=== PATIENT | female | born 1940 | race Caucasian/White ===

== ENCOUNTER 2017-06-07 10:49 | Day surgery (SDC) | payer MEDICARE, MEDICAID ==
[~2017-06-07] VITALS: Ht 160 cm; Wt 64.9 kg
[~2017-06-07 10:49] MED LIST: ALBU2.5V7 NEB; CALC667T5 PO; INSU100V9 SQ; VIT1TABL48 PO
[2017-06-07] MEDS ORDERED: normal saline 1000ml 1,000 ML IV SCH (11:05)
[2017-06-07] MEDS ORDERED: LIDOcaine 1%/PF (10mg/ml) 5ml vial SQ ONE (11:20)
[2017-06-07] MEDS ORDERED: midazolam 2 mg/2 ml injection IV PRN (11:20)
[2017-06-07] MEDS ORDERED: fentaNYL/PF 50MCG/1 ML 2ML syringe IV PRN (11:20)
[2017-06-19] MEDS ORDERED: VIT1TABL50 PO (15:38)
[2017-06-19] MEDS ORDERED: FOLI0.8T7 PO (15:39)
[2017-06-19] MEDS ORDERED: SENN-61 PO (15:39)
== END 2017-06-07 11:35 | disposition home or self-care (01) ==
LOC: SSTAY O 10:49
PROVIDERS: ATTEND Radiology Diagnostic Radiology
DX: Z49.02 Encounter for fitting and adjustment of peritoneal dialysis catheter (principal); Z53.8 Procedure and treatment not carried out for other reasons; N18.6 End stage renal disease
CPT/HCPCS: 82948; J7030

== ENCOUNTER 2017-06-13 01:17 | Inpatient (IN) | payer MEDICARE, MEDICAID ==
[~2017-06-13] VITALS: Ht 161.3 cm; Wt 60.8 kg
[2017-06-13 04:15] VITALS: BP 135/75
[2017-06-13] MEDS ORDERED: ondansetron/PF 4mg/2ml inj IV PRN (05:15)
[2017-06-13] MEDS ORDERED: piperacillin/tazo 3.375gm/50ml 50 ML IV ONE (05:40)
[2017-06-13 06:00] VITALS: BP 129/85
[2017-06-13 06:16] LABS: BASOPHILS % (AUTO) 0.1 % (0-1); EOSINOPHILS # (AUTO) 0.3 X10'3 (0-0.9); EOSINOPHILS % (AUTO) 1.8 % (0-6); HEMATOCRIT 32.9 % (35.0-45.0); HEMOGLOBIN 10.4 g/dl (12.0-16.0); LYMPHOCYTES % (AUTO) 5.9 % (21-51); MEAN CORPUSCULAR HEMOGLOBIN 28.9 PG (27.0-31.0); MEAN CORPUSCULAR HGB CONC 31.6 % (33.0-36.5); MEAN CORPUSCULAR VOLUME 91.5 FL (78-98); MEAN PLATELET VOLUME 7.3 FL (7.4-10.4); MONOCYTES # (AUTO) 1.3 X10'3 (0-0.9); MONOCYTES % (AUTO) 7.9 % (2-12); NEUTROPHILS % (AUTO) 84.3 % (42-75); PLATELET COUNT 331 X10'3 (140-440); RED CELL DISTRIBUTION WIDTH 15.4 % (11.5-14.5); WHITE BLOOD COUNT 16.6 X10'3 (4.5-11.0)
[2017-06-13 06:26] LABS: PARTIAL THROMBOPLASTIN TIME 30 SECONDS (22-32); PROTHROMBIN TIME 10.3 SECONDS (9.0-12.0)
[2017-06-13 06:53] LABS: ALANINE AMINOTRANSFERASE 15 U/L (12-78); ALBUMIN 3.2 G/DL (3.4-5.0); ALBUMIN/GLOBULIN RATIO 0.8 (1.1-1.5); ALKALINE PHOSPHATASE 133 IU/L (46-116); ANION GAP 10 (8-16); ASPARTATE AMINO TRANSFERASE 17 U/L (10-37); BILIRUBIN,TOTAL 0.6 MG/DL (0.1-1.0); BLOOD UREA NITROGEN 20 MG/DL (7-18); BUN/CREATININE RATIO 4.2 (6.6-38.0); CALCIUM 8.9 MG/DL (8.5-10.1); CHLORIDE 99 MMOL/L (99-107); CREATININE 4.78 MG/DL (0.40-0.90); GLUCOSE 148 MG/DL (70-104); MAGNESIUM 2.7 MG/DL (1.5-2.4); POTASSIUM 4.6 MMOL/L (3.5-5.1); SODIUM 139 MMOL/L (135-145); TOTAL CARBON DIOXIDE 29.6 MMOL/L (24-32); TOTAL PROTEIN 7.1 G/DL (6.4-8.2); eGFR 9 ML/MIN
[2017-06-13 07:10] LABS: HEMOGLOBIN A1C 5.1 % (4.5-6.2)
[2017-06-13] MEDS: piperacillin-tazo 2.25gm/50ml 50 ML IV SCH ×2 (09:57→16:00)
[2017-06-13 11:00] VITALS: BP 125/61
[2017-06-13] MEDS ORDERED: heparin 1,000unit/ml 10ml vial 10 ML IV ONE (12:16)
[2017-06-13] MEDS ORDERED: normal saline 1000ml 250 ML IV PRN (12:16)
[2017-06-13] MEDS ORDERED: heparin 1,000 units/ml 10ml inj HE ONE ×2 (12:20)
[2017-06-13] MEDS ORDERED: ONDA4TAB11 PO (14:43)
[2017-06-13] MEDS ORDERED: PER10325T PO (14:43)
[2017-06-13] MEDS ORDERED: LUTE40CA PO (14:44)
[2017-06-13 15:00] VITALS: BP 105/48
[2017-06-13] MEDS ORDERED: lactobacillus rhamnosus 10,000 MMU CELLS/CAPSULE PO SCH (17:30)
[2017-06-19] MEDS ORDERED: VIT1TABL50 PO (15:38)
[2017-06-19] MEDS ORDERED: FOLI0.8T7 PO (15:39)
[2017-06-19] MEDS ORDERED: SENN-61 PO (15:39)
== END 2017-06-13 17:30 | disposition home or self-care (01) | DRG 388 ==
LOC: PCU 3S 04:06
PROVIDERS: ADMIT Internal Medicine Critical Care Medicine; ATTEND Internal Medicine Critical Care Medicine
PROC: 5A1D70Z Performance of Urinary Filtration, Intermittent, Less than 6 Hours Per Day (ICD-10-PCS; principal; 2017-06-13)
DX: K56.41 Fecal impaction (principal); N18.6 End stage renal disease; E11.22 Type 2 diabetes mellitus with diabetic chronic kidney disease; K21.9 Gastro-esophageal reflux disease without esophagitis; Z90.49 Acquired absence of other specified parts of digestive tract; Z90.710 Acquired absence of both cervix and uterus; Z99.2 Dependence on renal dialysis; Z79.899 Other long term (current) drug therapy; Z79.4 Long term (current) use of insulin; Z98.42 Cataract extraction status, left eye; Z98.41 Cataract extraction status, right eye; Z87.891 Personal history of nicotine dependence
CPT/HCPCS: 36415; 80053; 83036; 83735; 85025; 85610; 85730; 87070; A6257; J1644; J2270; J2543; J7030

== ENCOUNTER 2017-06-20 06:02 | Day surgery (SDC) | payer MEDICARE, MEDICAID ==
[~2017-06-20] VITALS: Ht 161.3 cm; Wt 63.0 kg
[2017-06-20 06:00] VITALS: BP 141/77
[~2017-06-20 06:02] MED LIST changes: -ALBU2.5V7 NEB; +FOLI0.8T7 PO; +LUTE40CA PO; +SENN-61 PO; -VIT1TABL48 PO; +VIT1TABL50 PO; +famotidine 20mg tablet PO ONE; +ringers solution, lacted 1,000 ML IV SCH
[2017-06-20] MEDS ORDERED: LIDOcaine 1% (10mg/ml) 2ml vial ONE (06:32)
[2017-06-20] MEDS ORDERED: ceFAZolin 2gm in dextrose, iso 100 ML IV ONE (06:40)
[2017-06-20] MEDS ORDERED: LIDOcaine 1% 30ml vial 30 ML ONE (07:15)
[2017-06-20] MEDS ORDERED: heparin 10,000 units/1 ML INJ ONE (07:15)
[2017-06-20] MEDS ORDERED: ceFAZolin 1000mg inj ONE (07:25)
[2017-06-20 07:54] LABS: BASOPHILS # (AUTO) 0.1 X10'3 (0-0.2); BASOPHILS % (AUTO) 0.7 % (0-1); EOSINOPHILS # (AUTO) 0.5 X10'3 (0-0.9); EOSINOPHILS % (AUTO) 4.9 % (0-6); LYMPHOCYTES # (AUTO) 1.6 X10'3 (1.1-4.8); LYMPHOCYTES % (AUTO) 17.3 % (21-51); MEAN CORPUSCULAR HEMOGLOBIN 28.6 PG (27.0-31.0); MEAN CORPUSCULAR HGB CONC 31.4 % (33.0-36.5); MEAN CORPUSCULAR VOLUME 90.9 FL (78-98); MEAN PLATELET VOLUME 7.2 FL (7.4-10.4); MONOCYTES % (AUTO) 10.3 % (2-12); NEUTROPHILS # (AUTO) 6.2 X10'3 (1.8-7.7); NEUTROPHILS % (AUTO) 66.8 % (42-75); PRE OP HEMATOCRIT 33.8 % (35.0-45.0); PRE OP PLATELET COUNT 301 X10'3 (140-440); RED BLOOD COUNT 3.72 X10'6 (4.20-5.60); RED CELL DISTRIBUTION WIDTH 15.2 % (11.5-14.5)
[2017-06-20 07:56] LABS: CLARITY,URINE Clear (Clear); COLOR,URINE Yellow (Yellow); GLUCOSE, URINE Negative (Neg); KETONES,URINE Negative (Neg); LEUKOCYTE ESTERASE ,URINE Negative (Neg); NITRITES, URINE Negative (Neg); OCCULT BLOOD,URINE Negative (Neg); PH,URINE >=9.0 (4.8-8.0); PROTEIN,URINE 300 mg/dl (Neg); UROBILINOGEN,URINE 0.2 E.U/dL (0.2-1.0)
[2017-06-20 07:57] LABS: PRE OP HEMOGLOBIN 10.6 g/dL (12.0-16.0)
[2017-06-20 07:59] LABS: UA COLLECTION TYPE VOIDED
[2017-06-20 08:09] LABS: BACTERIA,URINE FEW /HPF (Neg); MUCUS STRANDS FEW /LPF (Neg); RBC,URINE 0-2 /HPF (0-2); SQUAMOUS EPITHELIAL CELL,UR FEW /LPF (FEW); WBC,URINE 0-4 /HPF (0-4)
[2017-06-20 08:16] LABS: ALBUMIN 3.1 G/DL (3.4-5.0); ALBUMIN/GLOBULIN RATIO 0.8 (1.1-1.5); ALKALINE PHOSPHATASE 107 IU/L (46-116); BLOOD UREA NITROGEN 37 MG/DL (7-18); BUN/CREATININE RATIO 7.3 (6.6-38.0); CALCIUM 8.7 MG/DL (8.5-10.1); CHLORIDE 101 MMOL/L (99-107); CREATININE 5.08 MG/DL (0.40-0.90); PRE OP ALT 16 U/L (30-65); PRE OP ANION GAP 8 (8-16); PRE OP AST 14 U/L (10-37); PRE OP BILIRUB, TOTAL 0.4 MG/DL (0.0-1.0); PRE OP GLUCOSE 113 MG/DL (70-104); PRE OP POTASSIUM 4.4 MMOL/L (3.4-5.1); PRE OP SODIUM 137 MMOL/L (135-145); TOTAL CARBON DIOXIDE 27.9 MMOL/L (24-32); TOTAL PROTEIN 6.9 G/DL (6.4-8.2); eGFR 8 ML/MIN
[2017-06-20] MEDS ORDERED: sevoflurane 250ml liquid IH ONE (10:00)
[2017-06-20] MEDS ORDERED: albuterol 2.5 MG/3 ML nebule ONE (10:00)
[2017-06-20] MEDS ORDERED: fentaNYL/PF 50MCG/1 ML 2ML syringe ONE ×2 (10:02→10:08)
[2017-06-20] MEDS ORDERED: ketamine 10mg/ml 20ml inj ONE (10:02)
[2017-06-20] MEDS ORDERED: midazolam 2 mg/2 ml injection ONE ×2 (10:02→10:08)
[2017-06-20] MEDS ORDERED: propofol inj 20 ML IV ONE (11:02)
[2017-06-20] MEDS ORDERED: glycopyrrolate 0.2mg/ml inj ONE (11:02)
[2017-06-20] MEDS ORDERED: LIDOcaine 2% (20mg/ml) 5ml vial ONE (11:02)
[2017-06-20] MEDS ORDERED: ondansetron/PF 4mg/2ml inj ONE (11:02)
[2017-06-20] MEDS ORDERED: rocuronium 10mg/ml inj IV ONE (11:02)
[2017-06-20] MEDS ORDERED: esmolol inj. 10 ML IV ONE (11:02)
[2017-06-20] MEDS ORDERED: neostigmine methylsulfate 1 MG/ML 10ml vial ONE (11:02)
[2017-06-20 11:30] VITALS: BP 153/87
[2017-06-20] MEDS ORDERED: normal saline 1000ml 1,000 ML IV ONE (11:35)
[2017-06-20] MEDS ORDERED: ondansetron/PF 4mg/2ml inj IV PRN (11:35)
[2017-06-20 11:40] VITALS: BP 140/79
[2017-06-20 11:50] VITALS: BP 132/75
[2017-06-20 12:00] VITALS: BP 133/72
[2017-06-20 12:10] VITALS: BP 135/78
[2017-06-20] MEDS ORDERED: traMADol 50MG tablet PO ONE (12:10)
== END 2017-06-20 12:10 | disposition home or self-care (01) ==
LOC: PAS 06:02
PROVIDERS: ATTEND Surgery
DX: E11.22 Type 2 diabetes mellitus with diabetic chronic kidney disease (principal); N18.9 Chronic kidney disease, unspecified; E78.5 Hyperlipidemia, unspecified; Z99.2 Dependence on renal dialysis; Z88.6 Allergy status to analgesic agent; Z88.8 Allergy status to other drugs, medicaments and biological substances; Z79.4 Long term (current) use of insulin; Z87.891 Personal history of nicotine dependence; Z98.890 Other specified postprocedural states
CPT/HCPCS: 36415; 36821; 49422; 80053; 81001; 82948; 85025; 93005; J0690; J1644; J2001; J2250; J2405; J2704; J2710; J3010; J3490; J7030; J7120; A7000

== ENCOUNTER 2018-07-10 17:38 | Emergency (ER) | payer MEDICARE, MEDICAID ==
[~2018-07-10] VITALS: Ht 160 cm; Wt 62.0 kg
[~2018-07-10 17:38] MED LIST changes: -famotidine 20mg tablet PO ONE; -ringers solution, lacted 1,000 ML IV SCH
[2018-07-10 18:15] LABS: BASOPHILS % (AUTO) 0.2 % (0-1); EOSINOPHILS # (AUTO) 0.1 X10'3 (0-0.9); EOSINOPHILS % (AUTO) 1.3 % (0-6); HEMATOCRIT 35.9 % (35.0-45.0); HEMOGLOBIN 11.8 g/dl (12.0-16.0); LYMPHOCYTES # (AUTO) 0.6 X10'3 (1.1-4.8); LYMPHOCYTES % (AUTO) 14.3 % (21-51); MEAN CORPUSCULAR HEMOGLOBIN 31.2 PG (27.0-31.0); MEAN CORPUSCULAR HGB CONC 32.9 g/dL (33.0-36.5); MEAN CORPUSCULAR VOLUME 94.7 FL (78-98); MEAN PLATELET VOLUME 7.7 FL (7.4-10.4); MONOCYTES # (AUTO) 0.6 X10'3 (0-0.9); MONOCYTES % (AUTO) 12.9 % (2-12); NEUTROPHILS # (AUTO) 3.1 X10'3 (1.8-7.7); NEUTROPHILS % (AUTO) 71.3 % (42-75); PLATELET COUNT 234 X10'3 (140-440); RED BLOOD COUNT 3.79 X10'6 (4.20-5.60); RED CELL DISTRIBUTION WIDTH 15.7 % (11.5-14.5); WHITE BLOOD COUNT 4.3 X10'3 (4.5-11.0)
[2018-07-10 18:32] LABS: INR 1.2 INR; PARTIAL THROMBOPLASTIN TIME 36 SECONDS (22-32)
[2018-07-10 18:49] LABS: ALANINE AMINOTRANSFERASE 34 U/L (12-78); ALBUMIN 2.6 G/DL (3.4-5.0); ALBUMIN/GLOBULIN RATIO 0.6 (1.1-1.5); ALKALINE PHOSPHATASE 127 IU/L (46-116); ANION GAP 7 (8-16); ASPARTATE AMINO TRANSFERASE 26 U/L (10-37); BILIRUBIN,TOTAL 0.6 MG/DL (0.1-1.0); BLOOD UREA NITROGEN 20 MG/DL (7-18); BUN/CREATININE RATIO 4.8 (6.6-38.0); CALCIUM 8.5 MG/DL (8.5-10.1); CHLORIDE 97 MMOL/L (99-107); GLUCOSE 161 MG/DL (70-104); POTASSIUM 3.9 MMOL/L (3.5-5.1); SODIUM 135 MMOL/L (135-145); TOTAL CARBON DIOXIDE 30.8 MMOL/L (24-32); TOTAL PROTEIN 7.2 G/DL (6.4-8.2); eGFR 10 ML/MIN
--- NOTE | 2018-07-10 18:58 | NUR ---
Call from lab to clarify eleveted BUN (20) and creatine (4.2)
--- NOTE | 2018-07-10 20:11 | NUR ---
ASSISTING RN WITH PT CARE, PT IS 78 YO FEMALE REFERRED TO ER BY DIALYSIS TO EVAL COUGH, PT HAS HAD PRODUCTIVE COUGH FOR 1 1/2 WEEKS, CHEST PRESSURE TO MID LOWER CHEST, +DYSPNEA, FINISHED ANTIBIOTIC YESTERDAY, HAD DIALYSIS TODAY, FAMILY AT BEDSIDE
[2018-07-10 21:40] VITALS: BP 120/46
--- NOTE | 2018-07-10 22:37 | NUR ---
June, Set Up Mechanic LUDWIG, at bedside. She was consulted and decision made to DC and stop coreg. Pt will be back for dialysis on sunday and further evaluated. Pt currently with stable vs. HR remains 55. Pt denies any pain. Daughter at beside.
== END 2018-07-10 23:00 | disposition home or self-care (01) ==
LOC: ER 17:39
DX: J90 Pleural effusion, not elsewhere classified (principal); R53.1 Weakness; I95.89 Other hypotension; I12.0 Hypertensive chronic kidney disease with stage 5 chronic kidney disease or end stage renal disease; N18.6 End stage renal disease; F17.200 Nicotine dependence, unspecified, uncomplicated; Z99.2 Dependence on renal dialysis; Z98.890 Other specified postprocedural states; Z88.5 Allergy status to narcotic agent; Z79.4 Long term (current) use of insulin; Z79.899 Other long term (current) drug therapy
CPT/HCPCS: 36415; 71045; 80053; 83605; 84484; 85025; 85610; 85730; 87040; 87502; 87503; 93005; 99284

== ENCOUNTER 2018-07-17 15:35 | Inpatient (IN) | payer MEDICARE, MEDICAID ==
[~2018-07-17] VITALS: Ht 160 cm; Wt 60.9 kg
[2018-07-17] MEDS ORDERED: acetaminophen 325mg tablet PO PRN ×2 (19:55)
--- NOTE | 2018-07-17 20:00 | NUR ---
arrived to floor. furnace charger notified MD to see patient. will get [address] Concaving Machine Operator noted pauses throughout trip up to 4 seconds. pt continues to be dizzy as only symptom. VSS. sitting in bed.
[2018-07-17] MEDS ORDERED: insulin Lispro (HumaLOG) vial - multi-dose SQ SCH (20:05)
[2018-07-17] MEDS ORDERED: dextrose ORAL solution 15 GM/59 ML bottle PO PRN ×2 (20:05)
[2018-07-17] MEDS ORDERED: MESSAGE TO PHARMACY PO ONE (20:05)
[2018-07-17] MEDS ORDERED: glucagon, human recombinant 1mg kit SUBCUT PRN (20:05)
[2018-07-17] MEDS ORDERED: dextrose 50%-water 50ml dispensing syringe IV PRN ×2 (20:05)
[2018-07-17 20:30] VITALS: BP 124/72
--- NOTE | 2018-07-17 20:30 | NUR ---
discussed code status with patient. she stated with her daughter that she doesn't want to be on life sustaining equipment, but ok to bring back temporary. will talk with Marina for correct orders.
[2018-07-17] MEDS: insulin glargine (Lantus) pen - multi-dose SQ SCH (21:00)
[2018-07-17 21:08] LABS: BASOPHILS % (AUTO) 0.4 % (0-1); EOSINOPHILS # (AUTO) 0.1 X10'3 (0-0.9); EOSINOPHILS % (AUTO) 1.6 % (0-6); HEMATOCRIT 36.5 % (35.0-45.0); HEMOGLOBIN 12.1 g/dl (12.0-16.0); LYMPHOCYTES % (AUTO) 12.2 % (21-51); MEAN CORPUSCULAR HEMOGLOBIN 31.4 PG (27.0-31.0); MEAN CORPUSCULAR HGB CONC 33.2 g/dL (33.0-36.5); MEAN CORPUSCULAR VOLUME 94.4 FL (78-98); MEAN PLATELET VOLUME 7.6 FL (7.4-10.4); MONOCYTES # (AUTO) 0.8 X10'3 (0-0.9); MONOCYTES % (AUTO) 9.1 % (2-12); NEUTROPHILS # (AUTO) 6.5 X10'3 (1.8-7.7); NEUTROPHILS % (AUTO) 76.7 % (42-75); PLATELET COUNT 299 X10'3 (140-440); RED BLOOD COUNT 3.87 X10'6 (4.20-5.60); RED CELL DISTRIBUTION WIDTH 15.9 % (11.5-14.5); WHITE BLOOD COUNT 8.5 X10'3 (4.5-11.0)
[2018-07-17 21:17] LABS: ALANINE AMINOTRANSFERASE 26 U/L (12-78); ALBUMIN 2.9 G/DL (3.4-5.0); ALBUMIN/GLOBULIN RATIO 0.7 (1.1-1.5); ALKALINE PHOSPHATASE 101 IU/L (46-116); ANION GAP 6 (8-16); ASPARTATE AMINO TRANSFERASE 23 U/L (10-37); BILIRUBIN,TOTAL 0.8 MG/DL (0.1-1.0); BLOOD UREA NITROGEN 46 MG/DL (7-18); BUN/CREATININE RATIO 6.7 (6.6-38.0); CALCIUM 9.4 MG/DL (8.5-10.1); CHLORIDE 94 MMOL/L (99-107); CREATININE 6.86 MG/DL (0.40-0.90); GLUCOSE 74 MG/DL (70-104); MAGNESIUM 2.4 MG/DL (1.5-2.4); SODIUM 131 MMOL/L (135-145); TOTAL CARBON DIOXIDE 31.2 MMOL/L (24-32); TOTAL PROTEIN 7.3 G/DL (6.4-8.2); eGFR 6 ML/MIN
[2018-07-17 21:21] LABS: INR 1.1 INR; PARTIAL THROMBOPLASTIN TIME 31 SECONDS (22-32); PHOSPHORUS 1.2 MG/DL (2.3-4.5); POTASSIUM 6.4 MMOL/L (3.5-5.1); PROTHROMBIN TIME 11.3 SECONDS (9.0-12.0)
[2018-07-17] MEDS ORDERED: sodium bicarbonate (8.4%) inj. 150 MEQ in dextrose 5%-water 1,000 ML IV SCH (21:45)
[2018-07-17] MEDS: ondansetron/PF 4mg/2ml inj IV PRN (22:26)
[2018-07-17 22:30] VITALS: BP 132/68
[2018-07-17] MEDS ORDERED: CARV3.1244 (23:10)
[2018-07-17] MEDS ORDERED: APIX2.5T (23:10)
[2018-07-17] MEDS ORDERED: OMEP40CA37 (23:10)
[2018-07-17] MEDS ORDERED: GUAI-934 (23:10)
[2018-07-17] MEDS ORDERED: AMIO200T40 (23:10)
--- NOTE | 2018-07-17 23:34 | NUR ---
charge Kyara reported 5 second pause to Marina. no new orders. dialysis will be in am. no kayexolate tonight - bicarb hanging.
[2018-07-18] VITALS (15 sets, daily range): BP systolic 95–138; BP diastolic 32–74
--- NOTE | 2018-07-18 04:50 | NUR ---
notified Marina of yaw lasting over 5 minutes with heartrate sustaining in 30's. pt's longest pause at this point is 7.25 seconds. pt still c/o dizziness with episodes when awake, but able to sleep through yaw events at this time. charge Kyara hanging dopamine drip as ordered by Marina. lab drawing blood
[2018-07-18] MEDS: DOPamine 400mg/D5W 250ml 250 ML IV SCH (04:53)
[2018-07-18 05:47] LABS: BASOPHILS % (AUTO) 0.5 % (0-1); EOSINOPHILS # (AUTO) 0.1 X10'3 (0-0.9); EOSINOPHILS % (AUTO) 1.8 % (0-6); HEMATOCRIT 34.6 % (35.0-45.0); HEMOGLOBIN 11.5 g/dl (12.0-16.0); LYMPHOCYTES # (AUTO) 1.1 X10'3 (1.1-4.8); LYMPHOCYTES % (AUTO) 13.6 % (21-51); MEAN CORPUSCULAR HEMOGLOBIN 31.1 PG (27.0-31.0); MEAN CORPUSCULAR HGB CONC 33.1 g/dL (33.0-36.5); MEAN CORPUSCULAR VOLUME 93.8 FL (78-98); MEAN PLATELET VOLUME 7.8 FL (7.4-10.4); MONOCYTES # (AUTO) 0.7 X10'3 (0-0.9); MONOCYTES % (AUTO) 8.9 % (2-12); NEUTROPHILS % (AUTO) 75.2 % (42-75); PLATELET COUNT 261 X10'3 (140-440); RED BLOOD COUNT 3.69 X10'6 (4.20-5.60); RED CELL DISTRIBUTION WIDTH 16.3 % (11.5-14.5)
[2018-07-18 06:04] LABS: ALANINE AMINOTRANSFERASE 23 U/L (12-78); ALBUMIN 2.6 G/DL (3.4-5.0); ALBUMIN/GLOBULIN RATIO 0.7 (1.1-1.5); ALKALINE PHOSPHATASE 87 IU/L (46-116); ANION GAP 5 (8-16); ASPARTATE AMINO TRANSFERASE 20 U/L (10-37); BILIRUBIN,TOTAL 0.6 MG/DL (0.1-1.0); BLOOD UREA NITROGEN 49 MG/DL (7-18); CALCIUM 8.9 MG/DL (8.5-10.1); CHLORIDE 93 MMOL/L (99-107); CREATININE 7.01 MG/DL (0.40-0.90); GLUCOSE 121 MG/DL (70-104); MAGNESIUM 2.4 MG/DL (1.5-2.4); PHOSPHORUS 1.4 MG/DL (2.3-4.5); SODIUM 129 MMOL/L (135-145); TOTAL PROTEIN 6.6 G/DL (6.4-8.2); eGFR 6 ML/MIN
[2018-07-18 06:16] LABS: POTASSIUM 6.1 MMOL/L (3.5-5.1)
--- NOTE | 2018-07-18 06:39 | NUR ---
reported to days. noted pt steady HR in 70's with no tachy episodes. no more pauses. noted critical potassium 6.1 called to Gray. no further orders. noted pt has only 1 IV and needs second for bicarb drip
[2018-07-18] MEDS: folic acid/vitamin B complex w/vitamin C 0.8mg tablet PO SCH (07:31)
[2018-07-18] MEDS: sennosides/docusate sodium tablet PO SCH (07:32)
[2018-07-18] MEDS: calcium acetate 667mg (PhosLO) capsule PO SCH ×2 (07:32→13:00)
[2018-07-18] MEDS: ondansetron/PF 4mg/2ml inj IV PRN (07:33)
--- NOTE | 2018-07-18 07:39 | NUR ---
PAGER ID: [phone] MESSAGE: Manuela AMOS [phone] [id number] [place] [employer] notified me that pt. went back into an accelerated junctional rhytmn with a HR of 115 and a blood pressure of 155/53. Pt. currently as a HR in the 60s.
[2018-07-18] MEDS ORDERED: folic acid/vitamin B complex w/vitamin C 0.8mg tablet PO SCH (08:00)
[2018-07-18] MEDS ORDERED: normal saline 1000ml 250 ML IV PRN (08:18)
[2018-07-18] MEDS ORDERED: LIDOcaine 1% (10mg/ml) 2ml vial SQ ONE (08:20)
[2018-07-18] MEDS ORDERED: heparin 1,000 units/ml 10ml inj IV ONE (08:20)
--- NOTE | 2018-07-18 13:18 | NUR ---
PAGER ID: [phone] MESSAGE: Marisa AMOS [phone]. Pt has decreased appetite, not eating much. Do you think Ensure or protein shake/supplement would be appropriate for her? Please advise. Thank you.
--- NOTE | 2018-07-18 14:05 | NUR ---
Marcelo 07/20 DMdone Consult: Pt with A1C of 7.0. Met pt at bedside. Offered written and verbal education, pt declined as she has had DM for over 20 years and has been educated. Pt follows a DM diet at home, takes medication on a regular basis, sees a DM regularly. No documented LBM Will continue to follow. Addendum: 07/18/18 at [address] Amended: Links added. Addendum: 07/18/18 at [address] I have reviewed and agree with note by Real Estate Accountant. Nuria Silva RD
[2018-07-18] MEDS ORDERED: apixaban 2.5mg tablet PO SCH (14:45)
[2018-07-18 16:28] LABS: ALANINE AMINOTRANSFERASE 26 U/L (12-78); ALBUMIN/GLOBULIN RATIO 0.6 (1.1-1.5); ALKALINE PHOSPHATASE 113 IU/L (46-116); ANION GAP 8 (8-16); ASPARTATE AMINO TRANSFERASE 25 U/L (10-37); BILIRUBIN,TOTAL 0.9 MG/DL (0.1-1.0); BLOOD UREA NITROGEN 27 MG/DL (7-18); BUN/CREATININE RATIO 5.7 (6.6-38.0); CALCIUM 9.5 MG/DL (8.5-10.1); CHLORIDE 94 MMOL/L (99-107); GLUCOSE 156 MG/DL (70-104); POTASSIUM 4.9 MMOL/L (3.5-5.1); SODIUM 133 MMOL/L (135-145); TOTAL CARBON DIOXIDE 30.9 MMOL/L (24-32); TOTAL PROTEIN 8.1 G/DL (6.4-8.2); eGFR 9 ML/MIN
--- NOTE | 2018-07-18 17:37 | NUR ---
Notified Dr. Diana of patient's inability to be titrated down on dopamine drip per Dr. Mcgill's miscellaneous nursing order. When rate was decreased from 3mcg/ to 2mcg/kg/hr, pt's heart rate decreased to high 40s/low50s. Increased rate to previous 3mcg/kg/hr. Also notified him that the infusion is running through PIV as PICC RN not available for placement. New PIV placed and site of infusion changed, PICC to be placed in the morning. No orders received.
[2018-07-18] MEDS: insulin glargine (Lantus) pen - multi-dose SQ SCH (21:00)
[2018-07-18] MEDS: zinc sulfate 220mg capsule PO SCH (21:51)
[2018-07-19] VITALS (10 sets, daily range): BP systolic 75–128; BP diastolic 46–70
[2018-07-19] MEDS: DOPamine 400mg/D5W 250ml 250 ML IV SCH ×2 (04:45→16:24)
--- NOTE | 2018-07-19 06:21 | NUR ---
Problems reprioritized. Patient report given, questions answered & plan of care reviewed with Manuela AMOS.
[2018-07-19 06:22] LABS: BASOPHILS % (AUTO) 0.5 % (0-1); EOSINOPHILS # (AUTO) 0.2 X10'3 (0-0.9); EOSINOPHILS % (AUTO) 2.3 % (0-6); HEMATOCRIT 40.3 % (35.0-45.0); HEMOGLOBIN 13.1 g/dl (12.0-16.0); LYMPHOCYTES # (AUTO) 0.9 X10'3 (1.1-4.8); LYMPHOCYTES % (AUTO) 11.5 % (21-51); MEAN CORPUSCULAR HEMOGLOBIN 30.9 PG (27.0-31.0); MEAN CORPUSCULAR HGB CONC 32.5 g/dL (33.0-36.5); MEAN PLATELET VOLUME 7.7 FL (7.4-10.4); MONOCYTES # (AUTO) 0.8 X10'3 (0-0.9); MONOCYTES % (AUTO) 10.1 % (2-12); NEUTROPHILS # (AUTO) 5.8 X10'3 (1.8-7.7); NEUTROPHILS % (AUTO) 75.6 % (42-75); PLATELET COUNT 301 X10'3 (140-440); RED BLOOD COUNT 4.24 X10'6 (4.20-5.60); RED CELL DISTRIBUTION WIDTH 15.6 % (11.5-14.5); WHITE BLOOD COUNT 7.7 X10'3 (4.5-11.0)
--- NOTE | 2018-07-19 06:23 | NUR ---
Patient in room PCU 3016. I have received report from Meg AMOS and had the opportunity to ask questions and assume patient care.
[2018-07-19 06:52] LABS: ALANINE AMINOTRANSFERASE 22 U/L (12-78); ALBUMIN 2.7 G/DL (3.4-5.0); ALBUMIN/GLOBULIN RATIO 0.6 (1.1-1.5); ALKALINE PHOSPHATASE 107 IU/L (46-116); ANION GAP 8 (8-16); ASPARTATE AMINO TRANSFERASE 19 U/L (10-37); BILIRUBIN,TOTAL 0.8 MG/DL (0.1-1.0); BLOOD UREA NITROGEN 38 MG/DL (7-18); BUN/CREATININE RATIO 6.3 (6.6-38.0); CALCIUM 9.1 MG/DL (8.5-10.1); CHLORIDE 95 MMOL/L (99-107); CREATININE 6.05 MG/DL (0.40-0.90); GLUCOSE 121 MG/DL (70-104); MAGNESIUM 2.3 MG/DL (1.5-2.4); PHOSPHORUS 1.7 MG/DL (2.3-4.5); POTASSIUM 5.1 MMOL/L (3.5-5.1); SODIUM 133 MMOL/L (135-145); TOTAL CARBON DIOXIDE 30.4 MMOL/L (24-32); TOTAL PROTEIN 7.4 G/DL (6.4-8.2); eGFR 7 ML/MIN
[2018-07-19] MEDS: zinc sulfate 220mg capsule PO SCH ×3 (08:00→21:39)
[2018-07-19] MEDS: sennosides/docusate sodium tablet PO SCH (08:00)
[2018-07-19] MEDS: folic acid/vitamin B complex w/vitamin C 0.8mg tablet PO SCH (08:00)
--- NOTE | 2018-07-19 08:03 | NUR ---
Contacted Dr. Valencia's office and spoke with Alivia regarding pt receiving 2.5mg Eliquis 07/18 @5007, she paged Dr. Valencia with this information, awaiting call back. Was told that if no call back in 15-20 minutes to contact office again.
--- NOTE | 2018-07-19 08:22 | NUR ---
Received return call from Dr. Valencia, notified him of pt receiving 2.5mg Eliquis yesterday @ 1642 as well as ECHO completed this AM and results are still pending. Dr. Valencia acknowledged. No orders received.
--- NOTE | 2018-07-19 10:40 | NUR ---
Notified by OR that patient will not have pacemaker placed until tomorrow morning (07/20) due to Eliquis administration yesterday and that she may eat until ID tonight.
--- NOTE | 2018-07-19 10:50 | NUR ---
Talked with PICC RN regarding patient needing either PICC or extended PIV due to continuous dopamine infusion. She thinks that a PICC is most appropriate for this medication, however, due to patient having pacemaker placement tomorrow she is unsure if a PICC is the best option. She states that she will contact Dr. Valencia and find out what he would like done.
--- NOTE | 2018-07-19 10:53 | NUR ---
Initial: Pt admit with ESRD on HD, dizziness, and bradycardia. Pt currently NPO for OR pending permanent pacemaker. Prior to NPO status pt was on renal diet with 1L fluid restriction with documented PO intake 25-50%. Will monitor PO intake with diet advancement and need for ONS. LBM 07/18. No edema or wounds. Will continue to follow. Recommendations: 1) Advance to renal CHO controlled diet as medically indicated 2) Monitor need for ONS with diet advancement 3) Wt per rx Addendum: 07/19/18 at [address] Amended: Links added.
--- NOTE | 2018-07-19 10:55 | NUR ---
PAGER ID: [phone] MESSAGE: Marisa AMOS [phone] [place] Pt has dopamine running through PIV, needs to be running through PICC. Per Dr. Valencia, PICC is okay prior to pacemaker placement tomorrow morning. Can we get an order for PICC placement.
--- NOTE | 2018-07-19 11:05 | NUR ---
PAGER ID: [phone] MESSAGE: Marisa AMOS [phone] [place] Pt has dopamine running through PIV, needs to be running through PICC. Per Dr. Valencia, PICC is okay prior to pacemaker placement tomorrow morning. Can we get an order for PICC placement.
--- NOTE | 2018-07-19 11:34 | NUR ---
DR COYNE CONSULTED REGARDING IV ACCESS FOR DOPAMINE GTT. HE REQUESTED A MID LINE IV TO BE PLACED IN PT. PICC DANDRE PAGED. Addendum: 07/19/18 at 1142 by Isi Louis RN Amended: Links added.
[2018-07-19] MEDS ORDERED: normal saline 1000ml 250 ML IV PRN (12:21)
[2018-07-19] MEDS ORDERED: heparin 1,000 units/ml 10ml inj IV ONE (12:25)
--- NOTE | 2018-07-19 12:25 | NUR ---
Extended PIV inserted to the left upper arm cephalic vein x 1 attempt using ultrasound. Spoke with Dr Mcgill about the need for a central line for the dopamine but request the midline for "least vein damaging." Extended PIV inserted without difficulty with good blood return. Bruised area distal to insertion site from IV attempt but due to location cephalic vein not suspected but RN notified to monitor. Addendum: 07/19/18 at 1234 by Maude Sotelo RN Amended: Links added.
[2018-07-19] MEDS ORDERED: ringers solution, lacted 1,000 ML IV ONE (13:21)
[2018-07-19 15:59] LABS: ALANINE AMINOTRANSFERASE 23 U/L (12-78); ALBUMIN 2.6 G/DL (3.4-5.0); ALBUMIN/GLOBULIN RATIO 0.6 (1.1-1.5); ALKALINE PHOSPHATASE 97 IU/L (46-116); ANION GAP 8 (8-16); ASPARTATE AMINO TRANSFERASE 18 U/L (10-37); BILIRUBIN,TOTAL 0.7 MG/DL (0.1-1.0); BLOOD UREA NITROGEN 27 MG/DL (7-18); BUN/CREATININE RATIO 6.1 (6.6-38.0); CALCIUM 8.4 MG/DL (8.5-10.1); CHLORIDE 98 MMOL/L (99-107); CREATININE 4.46 MG/DL (0.40-0.90); GLUCOSE 162 MG/DL (70-104); SODIUM 135 MMOL/L (135-145); TOTAL PROTEIN 6.9 G/DL (6.4-8.2); eGFR 10 ML/MIN
--- NOTE | 2018-07-19 16:35 | NUR ---
Spoke with Dr. Mcgill about pt. receiving heparin during dialysis, he informed that would not affect her pacemaker surgery tomorrow.
--- NOTE | 2018-07-19 16:47 | NUR ---
Spoke with Isi the Picc nurse who informed that she thinks pt. needed a central line for dopamine infusion. Extended PIV inserted and was told to monitor the bruise distal from insertion site.
[2018-07-19] MEDS: insulin glargine (Lantus) pen - multi-dose SQ SCH (21:00)
[2018-07-20 05:54] LABS: BASOPHILS % (AUTO) 0.5 % (0-1); EOSINOPHILS # (AUTO) 0.2 X10'3 (0-0.9); EOSINOPHILS % (AUTO) 2.7 % (0-6); HEMATOCRIT 37.4 % (35.0-45.0); HEMOGLOBIN 12.4 g/dl (12.0-16.0); LYMPHOCYTES # (AUTO) 0.7 X10'3 (1.1-4.8); LYMPHOCYTES % (AUTO) 9.6 % (21-51); MEAN CORPUSCULAR HEMOGLOBIN 31.3 PG (27.0-31.0); MEAN CORPUSCULAR HGB CONC 33.2 g/dL (33.0-36.5); MEAN CORPUSCULAR VOLUME 94.1 FL (78-98); MEAN PLATELET VOLUME 7.4 FL (7.4-10.4); MONOCYTES # (AUTO) 0.7 X10'3 (0-0.9); MONOCYTES % (AUTO) 9.6 % (2-12); NEUTROPHILS # (AUTO) 5.6 X10'3 (1.8-7.7); NEUTROPHILS % (AUTO) 77.6 % (42-75); PLATELET COUNT 269 X10'3 (140-440); RED BLOOD COUNT 3.98 X10'6 (4.20-5.60); RED CELL DISTRIBUTION WIDTH 16.1 % (11.5-14.5); WHITE BLOOD COUNT 7.3 X10'3 (4.5-11.0)
[2018-07-20 06:00] VITALS: BP 128/56
[2018-07-20] MEDS ORDERED: famotidine/PF 10 mg/ml inj IV ONE (06:00)
[2018-07-20 06:33] LABS: ALANINE AMINOTRANSFERASE 23 U/L (12-78); ALBUMIN 2.6 G/DL (3.4-5.0); ALBUMIN/GLOBULIN RATIO 0.6 (1.1-1.5); ALKALINE PHOSPHATASE 99 IU/L (46-116); ANION GAP 9 (8-16); ASPARTATE AMINO TRANSFERASE 20 U/L (10-37); BILIRUBIN,TOTAL 0.7 MG/DL (0.1-1.0); BLOOD UREA NITROGEN 29 MG/DL (7-18); BUN/CREATININE RATIO 6.2 (6.6-38.0); CALCIUM 8.7 MG/DL (8.5-10.1); CHLORIDE 99 MMOL/L (99-107); CREATININE 4.71 MG/DL (0.40-0.90); GLUCOSE 120 MG/DL (70-104); PHOSPHORUS 1.9 MG/DL (2.3-4.5); POTASSIUM 4.5 MMOL/L (3.5-5.1); SODIUM 137 MMOL/L (135-145); TOTAL CARBON DIOXIDE 29.3 MMOL/L (24-32); TOTAL PROTEIN 6.9 G/DL (6.4-8.2); eGFR 9 ML/MIN
[2018-07-20] MEDS: zinc sulfate 220mg capsule PO SCH ×3 (07:54→21:32)
[2018-07-20] MEDS: sennosides/docusate sodium tablet PO SCH (07:54)
[2018-07-20] MEDS: folic acid/vitamin B complex w/vitamin C 0.8mg tablet PO SCH (07:54)
[2018-07-20 11:00] VITALS: BP 119/58
[2018-07-20 15:00] VITALS: BP 112/59
[2018-07-20] MEDS ORDERED: bisacodyl 10mg suppository rectal RC STA (17:15)
[2018-07-20] MEDS ORDERED: docusate sodium 100mg/10ml UD cup PO PRN (17:15)
--- NOTE | 2018-07-20 18:17 | NUR ---
Problems reprioritized. Patient report given, questions answered & plan of care reviewed with DANDRE Bridges.
[2018-07-20] MEDS: insulin glargine (Lantus) pen - multi-dose SQ SCH (21:00)
[2018-07-21 06:05] LABS: BASOPHILS # (AUTO) 0.1 X10'3 (0-0.2); BASOPHILS % (AUTO) 0.7 % (0-1); EOSINOPHILS # (AUTO) 0.2 X10'3 (0-0.9); EOSINOPHILS % (AUTO) 2.4 % (0-6); HEMATOCRIT 38.1 % (35.0-45.0); HEMOGLOBIN 12.6 g/dl (12.0-16.0); LYMPHOCYTES # (AUTO) 1.1 X10'3 (1.1-4.8); LYMPHOCYTES % (AUTO) 15.3 % (21-51); MEAN CORPUSCULAR HEMOGLOBIN 30.9 PG (27.0-31.0); MEAN CORPUSCULAR VOLUME 93.5 FL (78-98); MEAN PLATELET VOLUME 7.7 FL (7.4-10.4); MONOCYTES # (AUTO) 0.7 X10'3 (0-0.9); MONOCYTES % (AUTO) 9.4 % (2-12); NEUTROPHILS # (AUTO) 5.3 X10'3 (1.8-7.7); NEUTROPHILS % (AUTO) 72.2 % (42-75); PLATELET COUNT 288 X10'3 (140-440); RED BLOOD COUNT 4.08 X10'6 (4.20-5.60); RED CELL DISTRIBUTION WIDTH 16.4 % (11.5-14.5); WHITE BLOOD COUNT 7.4 X10'3 (4.5-11.0)
--- NOTE | 2018-07-21 06:05 | NUR ---
Patient in room PCU 3016. I have received report from Cyrus AMOS and had the opportunity to ask questions and assume patient care.
[2018-07-21 06:32] LABS: ALANINE AMINOTRANSFERASE 19 U/L (12-78); ALBUMIN 2.7 G/DL (3.4-5.0); ALBUMIN/GLOBULIN RATIO 0.6 (1.1-1.5); ALKALINE PHOSPHATASE 110 IU/L (46-116); ANION GAP 11 (8-16); ASPARTATE AMINO TRANSFERASE 18 U/L (10-37); BILIRUBIN,TOTAL 0.6 MG/DL (0.1-1.0); BLOOD UREA NITROGEN 46 MG/DL (7-18); BUN/CREATININE RATIO 7.3 (6.6-38.0); CALCIUM 9.2 MG/DL (8.5-10.1); CHLORIDE 98 MMOL/L (99-107); CREATININE 6.31 MG/DL (0.40-0.90); GLUCOSE 130 MG/DL (70-104); MAGNESIUM 2.2 MG/DL (1.5-2.4); PHOSPHORUS 1.9 MG/DL (2.3-4.5); POTASSIUM 4.9 MMOL/L (3.5-5.1); SODIUM 136 MMOL/L (135-145); TOTAL CARBON DIOXIDE 27.5 MMOL/L (24-32); eGFR 6 ML/MIN
--- NOTE | 2018-07-21 06:46 | NUR ---
Problems reprioritized. Patient report given, questions answered & plan of care reviewed with DANDRE Adrian Addendum: 07/21/18 at 0650 by Sheryl Sparks RN Problems reprioritized. Patient report given, questions answered & plan of care reviewed with DANDRE Ornelas
[2018-07-21 07:00] VITALS: BP 137/58
[2018-07-21] MEDS: DOPamine 400mg/D5W 250ml 250 ML IV SCH (07:02)
[2018-07-21] MEDS: folic acid/vitamin B complex w/vitamin C 0.8mg tablet PO SCH (07:47)
[2018-07-21] MEDS: zinc sulfate 220mg capsule PO SCH ×3 (07:47→20:27)
[2018-07-21] MEDS: sennosides/docusate sodium tablet PO SCH (07:47)
[2018-07-21] MEDS ORDERED: lactulose 20gm/30ml cup PO PRN (10:40)
[2018-07-21] MEDS ORDERED: lactulose 20gm/30ml cup PO ONE (10:40)
[2018-07-21 11:00] VITALS: BP 150/62
[2018-07-21 15:00] VITALS: BP 147/54
[2018-07-21 15:36] LABS: ALANINE AMINOTRANSFERASE 21 U/L (12-78); ALBUMIN 2.8 G/DL (3.4-5.0); ALBUMIN/GLOBULIN RATIO 0.7 (1.1-1.5); ALKALINE PHOSPHATASE 103 IU/L (46-116); ANION GAP 11 (8-16); ASPARTATE AMINO TRANSFERASE 21 U/L (10-37); BILIRUBIN,TOTAL 0.6 MG/DL (0.1-1.0); BLOOD UREA NITROGEN 48 MG/DL (7-18); BUN/CREATININE RATIO 7.1 (6.6-38.0); CALCIUM 8.7 MG/DL (8.5-10.1); CHLORIDE 97 MMOL/L (99-107); CREATININE 6.73 MG/DL (0.40-0.90); GLUCOSE 133 MG/DL (70-104); POTASSIUM 4.8 MMOL/L (3.5-5.1); SODIUM 135 MMOL/L (135-145); TOTAL CARBON DIOXIDE 27.2 MMOL/L (24-32); TOTAL PROTEIN 7.1 G/DL (6.4-8.2); eGFR 6 ML/MIN
[2018-07-21 19:00] VITALS: BP 161/54
[2018-07-21] MEDS: insulin glargine (Lantus) pen - multi-dose SQ SCH (21:00)
[2018-07-22] VITALS (13 sets, daily range): BP systolic 139–184; BP diastolic 57–83
[2018-07-22] MEDS: DOPamine 400mg/D5W 250ml 250 ML IV SCH (04:45)
--- NOTE | 2018-07-22 06:30 | NUR ---
Patient in room PCU 3016. I have received report from DANDRE VALENCIA and had the opportunity to ask questions and assume patient care.
--- NOTE | 2018-07-22 07:00 | NUR ---
Problems reprioritized. Patient report given, questions answered & plan of care reviewed with Kings RN.
[2018-07-22 07:42] LABS: BASOPHILS % (AUTO) 0.5 % (0-1); EOSINOPHILS # (AUTO) 0.2 X10'3 (0-0.9); EOSINOPHILS % (AUTO) 2.8 % (0-6); HEMATOCRIT 36.6 % (35.0-45.0); HEMOGLOBIN 12.1 g/dl (12.0-16.0); LYMPHOCYTES # (AUTO) 1.3 X10'3 (1.1-4.8); LYMPHOCYTES % (AUTO) 16.9 % (21-51); MEAN CORPUSCULAR HGB CONC 33.1 g/dL (33.0-36.5); MEAN CORPUSCULAR VOLUME 93.7 FL (78-98); MEAN PLATELET VOLUME 7.5 FL (7.4-10.4); MONOCYTES # (AUTO) 0.7 X10'3 (0-0.9); MONOCYTES % (AUTO) 9.1 % (2-12); NEUTROPHILS # (AUTO) 5.4 X10'3 (1.8-7.7); NEUTROPHILS % (AUTO) 70.7 % (42-75); PLATELET COUNT 292 X10'3 (140-440); RED CELL DISTRIBUTION WIDTH 16.5 % (11.5-14.5); WHITE BLOOD COUNT 7.6 X10'3 (4.5-11.0)
[2018-07-22] MEDS: sennosides/docusate sodium tablet PO SCH (08:00)
[2018-07-22] MEDS ORDERED: normal saline 1000ml 100 ML IV PRN (08:06)
[2018-07-22] MEDS ORDERED: normal saline 1000ml 250 ML IV PRN (08:06)
[2018-07-22] MEDS ORDERED: LIDOcaine 1% (10mg/ml) 2ml vial SQ ONE (08:10)
[2018-07-22 08:14] LABS: ALANINE AMINOTRANSFERASE 21 U/L (12-78); ALBUMIN 2.8 G/DL (3.4-5.0); ALBUMIN/GLOBULIN RATIO 0.7 (1.1-1.5); ALKALINE PHOSPHATASE 97 IU/L (46-116); ANION GAP 13 (8-16); ASPARTATE AMINO TRANSFERASE 21 U/L (10-37); BILIRUBIN,TOTAL 0.7 MG/DL (0.1-1.0); BLOOD UREA NITROGEN 53 MG/DL (7-18); BUN/CREATININE RATIO 7.1 (6.6-38.0); CALCIUM 8.6 MG/DL (8.5-10.1); CHLORIDE 96 MMOL/L (99-107); CREATININE 7.46 MG/DL (0.40-0.90); GLUCOSE 123 MG/DL (70-104); MAGNESIUM 2.1 MG/DL (1.5-2.4); PHOSPHORUS 2.6 MG/DL (2.3-4.5); POTASSIUM 4.8 MMOL/L (3.5-5.1); SODIUM 135 MMOL/L (135-145); TOTAL CARBON DIOXIDE 25.7 MMOL/L (24-32); TOTAL PROTEIN 7.1 G/DL (6.4-8.2); eGFR 5 ML/MIN
[2018-07-22] MEDS: folic acid/vitamin B complex w/vitamin C 0.8mg tablet PO SCH (09:07)
[2018-07-22] MEDS: zinc sulfate 220mg capsule PO SCH ×3 (09:08→20:23)
--- NOTE | 2018-07-22 09:26 | NUR ---
PAGER ID: [phone] MESSAGE: DR. WAYNE, [id number], FAMILY HERE ASKING ABOUT WHEN PPM SURGERY? ANY INFORMATION ABOUT THAT? I KEPT HER NPO THIS AM. DISTRICT CAPTAIN SAYS SHE WAS ADD ON TO SCHEDULE TODAY, NO SCHEDULED TIME. KESHA [id number]. TY.
[2018-07-22] MEDS ORDERED: morphine 2 MG/ML inj. syringe IV PRN (10:00)
[2018-07-22] MEDS ORDERED: proCHLORperazine 10 MG/2 ml inj ONE (15:04)
[2018-07-22] MEDS ORDERED: lidocaine 1%/epinephrine 1:100,000 injection 50ml vial ONE (15:05)
[2018-07-22] MEDS ORDERED: midazolam 2 mg/2 ml injection ONE ×3 (15:05→18:01)
[2018-07-22] MEDS ORDERED: heparin 1,000unit/ml 10ml vial 10 ML ONE (15:05)
[2018-07-22] MEDS ORDERED: fentaNYL/PF 50MCG/1 ML 2ML syringe ONE ×2 (15:05→16:38)
[2018-07-22] MEDS ORDERED: iohexol 350 MG/ML 50ML vial IV ONE (15:06)
[2018-07-22] MEDS ORDERED: iohexol 350MG/ML 100ml bottle IV ONE ×2 (15:06→16:46)
--- NOTE | 2018-07-22 15:44 | NUR ---
KIRAN AMOS HERE TO TAKE TO INSTRUMENT AND CONTROL TECHNICIAN. KIRAN BATISTA Addendum: 07/22/18 at 1549 by Supa Shannon RN KIRAN INFORMED I DID NOT KNOW ABOUT HEART CATH, ONLY PPM/AICD PLACEMENT. NO CONSENT SIGNED, NO INFORMED CONSENT DOCUMENTED. TO INSTRUMENT AND CONTROL TECHNICIAN VIA .
[2018-07-22] MEDS ORDERED: polyethylene glycol 3350 17gm powd pack PO PRN (15:45)
[2018-07-22] MEDS ORDERED: cefazolin/dext.iso 2gm/50ml 50 ML IV ONE (16:09)
[2018-07-22] MEDS ORDERED: vancomycin/NS 1 GM ADD-VANTAGE 250 ML IV ONE (16:18)
--- NOTE | 2018-07-22 18:30 | NUR ---
RETURNED FROM [facility] VIA MAURILIO VIVAR RN IN AND GIVEN REPORT. RIGHT GROIN DRESSING CDI WITHOUT SX OF HEMATOMA OR HEMORRHAGE. PPM DRESSING CDI WITHOUT SX OF HEMATOMA OR HEMORRHAGE.
--- NOTE | 2018-07-22 19:00 | NUR ---
Patient in room PCU 3016. I have received report from tashi stein and had the opportunity to ask questions and assume patient care.
--- NOTE | 2018-07-22 19:23 | NUR ---
chest xray radiology paged
--- NOTE | 2018-07-22 19:28 | NUR ---
vanco given in sugar laboratory assistant; see post op report
[2018-07-22] MEDS ORDERED: cloNIDine 0.1 mg tablet PO PRN (19:35)
[2018-07-22] MEDS: insulin glargine (Lantus) pen - multi-dose SQ SCH (21:00)
--- NOTE | 2018-07-22 22:42 | NUR ---
Patient in room PCU 3016. I have received report from tashi stein and had the opportunity to ask questions and assume patient care. groin site free of drainage; intact. no hematoma; dr villegas contacted about bp being elevated, that dopamine was still ordered and that bicarb was d/c'd. dr lao dopamine and gave other new orders Addendum: 07/23/18 at 3302 by Dom Nieves RN PER DR VILLEGAS NORMAL SALINE 100CC X4 HOURS NOT TO BE STARTED; HE ASKED NURSE WHERE THESE ORDERS WERE FROM SHE EXPLAINED THEY WERE A SET ORDER ON THE POST OP PROCEDURE FORM, HE ORDERED TO NOT GIVE THIS
[2018-07-23] VITALS (9 sets, daily range): BP systolic 134–159; BP diastolic 57–82
[2018-07-23 04:54] LABS: BASOPHILS % (AUTO) 0.6 % (0-1); EOSINOPHILS # (AUTO) 0.1 X10'3 (0-0.9); EOSINOPHILS % (AUTO) 2.1 % (0-6); HEMATOCRIT 32.6 % (35.0-45.0); HEMOGLOBIN 10.9 g/dl (12.0-16.0); LYMPHOCYTES # (AUTO) 0.5 X10'3 (1.1-4.8); LYMPHOCYTES % (AUTO) 8.5 % (21-51); MEAN CORPUSCULAR HEMOGLOBIN 31.3 PG (27.0-31.0); MEAN CORPUSCULAR HGB CONC 33.5 g/dL (33.0-36.5); MEAN CORPUSCULAR VOLUME 93.6 FL (78-98); MEAN PLATELET VOLUME 7.5 FL (7.4-10.4); MONOCYTES # (AUTO) 0.6 X10'3 (0-0.9); MONOCYTES % (AUTO) 9.2 % (2-12); NEUTROPHILS # (AUTO) 5.1 X10'3 (1.8-7.7); NEUTROPHILS % (AUTO) 79.6 % (42-75); PLATELET COUNT 242 X10'3 (140-440); RED BLOOD COUNT 3.49 X10'6 (4.20-5.60); RED CELL DISTRIBUTION WIDTH 16.2 % (11.5-14.5); WHITE BLOOD COUNT 6.4 X10'3 (4.5-11.0)
[2018-07-23 05:19] LABS: ALANINE AMINOTRANSFERASE 13 U/L (12-78); ALBUMIN 2.5 G/DL (3.4-5.0); ALBUMIN/GLOBULIN RATIO 0.7 (1.1-1.5); ALKALINE PHOSPHATASE 82 IU/L (46-116); ANION GAP 10 (8-16); ASPARTATE AMINO TRANSFERASE 19 U/L (10-37); BILIRUBIN,TOTAL 0.6 MG/DL (0.1-1.0); BLOOD UREA NITROGEN 59 MG/DL (7-18); BUN/CREATININE RATIO 7.3 (6.6-38.0); CALCIUM 8.3 MG/DL (8.5-10.1); CHLORIDE 98 MMOL/L (99-107); CREATININE 8.03 MG/DL (0.40-0.90); GLUCOSE 98 MG/DL (70-104); POTASSIUM 5.4 MMOL/L (3.5-5.1); SODIUM 132 MMOL/L (135-145); TOTAL CARBON DIOXIDE 24.2 MMOL/L (24-32); TOTAL PROTEIN 6.2 G/DL (6.4-8.2); eGFR 5 ML/MIN
--- NOTE | 2018-07-23 06:30 | NUR ---
Problems reprioritized. Patient report given, questions answered & plan of care reviewed with KESHA RN. GROIN SITE DRAINAGE ON DRESSING WITHIN [place] AND NO HEMATOMA PRESENT. SITE IS SOFT. PATIENT AWAKE IN NO DISTRESS. ARM REMAINS IN SLING/PACER SITE CLEAN DRY AND INTACT.
--- NOTE | 2018-07-23 06:52 | NUR ---
Patient in room PCU 3016. I have received report from DANDRE MALIK and had the opportunity to ask questions and assume patient care.
[2018-07-23] MEDS: sennosides/docusate sodium tablet PO SCH (08:02)
[2018-07-23] MEDS: docusate sod 250mg capsule PO SCH (08:03)
[2018-07-23] MEDS: zinc sulfate 220mg capsule PO SCH ×3 (08:03→22:05)
[2018-07-23] MEDS: folic acid/vitamin B complex w/vitamin C 0.8mg tablet PO SCH (08:03)
[2018-07-23] MEDS ORDERED: normal saline 1000ml 250 ML IV PRN (08:34)
[2018-07-23] MEDS ORDERED: LIDOcaine 1% (10mg/ml) 2ml vial SQ ONE (08:35)
--- NOTE | 2018-07-23 10:13 | NUR ---
PAGED CASE MANAGEMENT:3016H/[facility] N[facility] ORDER FROM DR. COYNE FOR CO SALES LEDGER ADMINISTRATOR PROAL FOR HOME SUNDAY.KESHA [phone]. TY
--- NOTE | 2018-07-23 13:20 | NUR ---
Student documentation: I have reviewed and agree with all interventions, assessments performed and documented by DILEEP HURTADO/RN STUDENT..
--- NOTE | 2018-07-23 17:47 | NUR ---
ACCUCHECK 220 WAS NOT FASTING. HAD LATE LUNCH R/T HEMODIALYSIS.
--- NOTE | 2018-07-23 18:13 | NUR ---
Problems reprioritized. Patient report given, questions answered & plan of care reviewed with pilar rn.
[2018-07-23] MEDS: insulin glargine (Lantus) pen - multi-dose SQ SCH (21:00)
[2018-07-24 03:00] VITALS: BP 133/58
[2018-07-24 04:44] LABS: BASOPHILS % (AUTO) 0.6 % (0-1); EOSINOPHILS # (AUTO) 0.2 X10'3 (0-0.9); HEMOGLOBIN 10.9 g/dl (12.0-16.0); LYMPHOCYTES # (AUTO) 0.7 X10'3 (1.1-4.8); LYMPHOCYTES % (AUTO) 10.8 % (21-51); MEAN CORPUSCULAR HEMOGLOBIN 30.9 PG (27.0-31.0); MEAN CORPUSCULAR VOLUME 93.6 FL (78-98); MEAN PLATELET VOLUME 7.7 FL (7.4-10.4); MONOCYTES # (AUTO) 0.9 X10'3 (0-0.9); MONOCYTES % (AUTO) 13.1 % (2-12); NEUTROPHILS # (AUTO) 4.8 X10'3 (1.8-7.7); NEUTROPHILS % (AUTO) 72.5 % (42-75); PLATELET COUNT 229 X10'3 (140-440); RED BLOOD COUNT 3.53 X10'6 (4.20-5.60); RED CELL DISTRIBUTION WIDTH 16.4 % (11.5-14.5); WHITE BLOOD COUNT 6.7 X10'3 (4.5-11.0)
[2018-07-24 04:49] LABS: ALBUMIN 2.6 G/DL (3.4-5.0); ANION GAP 10 (8-16); BLOOD UREA NITROGEN 34 MG/DL (7-18); BUN/CREATININE RATIO 6.5 (6.6-38.0); CALCIUM 8.5 MG/DL (8.5-10.1); CHLORIDE 98 MMOL/L (99-107); CREATININE 5.24 MG/DL (0.40-0.90); GLUCOSE 98 MG/DL (70-104); POTASSIUM 4.1 MMOL/L (3.5-5.1); SODIUM 134 MMOL/L (135-145); TOTAL CARBON DIOXIDE 26.5 MMOL/L (24-32); eGFR 8 ML/MIN
[2018-07-24 06:00] VITALS: BP 150/62
--- NOTE | 2018-07-24 06:21 | NUR ---
orientee documentation: I have reviewed and agree with all interventions, assessments performed and documented by cheryl stein.
--- NOTE | 2018-07-24 06:21 | NUR ---
orientee Medication Administration: For this medication-pass time frame, all medication were reviewed, dispensed, administered and documented per hospital policy by cheryl stein.
[2018-07-24] MEDS: docusate sod 250mg capsule PO SCH (07:34)
[2018-07-24] MEDS: zinc sulfate 220mg capsule PO SCH ×2 (07:35→13:52)
[2018-07-24] MEDS: folic acid/vitamin B complex w/vitamin C 0.8mg tablet PO SCH (07:35)
[2018-07-24] MEDS: sennosides/docusate sodium tablet PO SCH (07:35)
--- NOTE | 2018-07-24 10:30 | NUR ---
Patient in room PCU 3016. I have received report from DANDRE Auguste and had the opportunity to ask questions and assume patient care.
--- NOTE | 2018-07-24 10:35 | NUR ---
Problems reprioritized. Patient report given, questions answered & plan of care reviewed with ADAN AMOS.
--- NOTE | 2018-07-24 10:46 | NUR ---
Reassessment: Documented PO intake fluctuates, NPO for HD, renal diet when not on HD with PO intake 50-75%. Per MD progress note pt pending d/c. Will continue to follow. Recommendations: 1) Continue renal diet 2) Monitor need for ONS 3) Wt per rx Addendum: 07/24/18 at [address] Amended: Links added.
[2018-07-24 11:00] VITALS: BP 149/70
--- NOTE | 2018-07-24 16:22 | NUR ---
Discharge information, including education, medication information, S&S worsening conditions & follow up appointments reviewed with pt and pt's daughters & granddaughters. Pt and family had the opportunity to ask questions. Pt will f/u with [facility] on 07/26 & with hitting coach on 08/08. All pt belongings, including cell phone & chager, gathered up and sent with pt's daughter to [facility]. IV removed, cannula intact. Tele box removed & returned to teletypist. Pt transported via wheelchair down to [facility]. Pt ambulated independently in to private vehicle without difficulty.
== END 2018-07-24 15:45 | disposition home or self-care (01) | DRG 224 ==
LOC: PCU 3S 19:26
PROVIDERS: ADMIT Internal Medicine; ATTEND Internal Medicine Critical Care Medicine
PROC: 0JH608Z Insertion of Defibrillator Generator into Chest Subcutaneous Tissue and Fascia, Open Approach (ICD-10-PCS; principal; 2018-07-17)
PROC: 02HK3KZ Insertion of Defibrillator Lead into Right Ventricle, Percutaneous Approach (ICD-10-PCS; 2018-07-17)
PROC: 02H63KZ Insertion of Defibrillator Lead into Right Atrium, Percutaneous Approach (ICD-10-PCS; 2018-07-17)
PROC: 5A1D70Z Performance of Urinary Filtration, Intermittent, Less than 6 Hours Per Day (ICD-10-PCS; 2018-07-19)
PROC: B2111ZZ Fluoroscopy of Multiple Coronary Arteries using Low Osmolar Contrast (ICD-10-PCS; 2018-07-22)
PROC: 4A023N7 Measurement of Cardiac Sampling and Pressure, Left Heart, Percutaneous Approach (ICD-10-PCS; 2018-07-22)
PROC: 4B02XTZ Measurement of Cardiac Defibrillator, External Approach (ICD-10-PCS; 2018-07-22)
PROC: 5A1D70Z Performance of Urinary Filtration, Intermittent, Less than 6 Hours Per Day (ICD-10-PCS; 2018-07-23)
DX: I49.5 Sick sinus syndrome (principal); N18.6 End stage renal disease; E44.1 Mild protein-calorie malnutrition; I45.2 Bifascicular block; I44.2 Atrioventricular block, complete; I42.0 Dilated cardiomyopathy; E11.22 Type 2 diabetes mellitus with diabetic chronic kidney disease; I27.20 Pulmonary hypertension, unspecified; E87.5 Hyperkalemia; I48.91 Unspecified atrial fibrillation; D64.9 Anemia, unspecified; F32.9 Major depressive disorder, single episode, unspecified; I47.9 Paroxysmal tachycardia, unspecified; K21.9 Gastro-esophageal reflux disease without esophagitis; K59.00 Constipation, unspecified; Z88.5 Allergy status to narcotic agent; Z90.710 Acquired absence of both cervix and uterus; Z99.2 Dependence on renal dialysis; Z68.23 Body mass index [BMI] 23.0-23.9, adult; Z79.899 Other long term (current) drug therapy; Z79.4 Long term (current) use of insulin; Z98.49 Cataract extraction status, unspecified eye
CPT/HCPCS: 33225; 33249; 36415; 71045; 80048; 80053; 82948; 83036; 83735; 84100; 84439; 84443; 85025; 85610; 85730; 87070; 93005; 93306; 93458; 93926; 97110; 97116; 99152; 99153; A4620; A6257; C1760; C1769; C1882; C1887; C1894; C1895; C1900; G0257; G0378; J0690; J0780; J1265; J1644; J1815; J2250; J2270; J2405; J3010; J3370; J3490; J7030; J7120; Q9967

== ENCOUNTER 2019-03-13 07:17 | Day surgery (SDC) | payer MEDICARE, MEDICAID, OTHER ==
[~2019-03-13] VITALS: Ht 160 cm; Wt 64.3 kg
[~2019-03-13 07:17] MED LIST changes: +APIX2.5T; -CALC667T5 PO; +CALC667T6 PO; +CARV3.1244; +GUAI-934; +OMEP40CA13; +SENN-251 PO; -SENN-61 PO
[2019-03-13 07:58] VITALS: BP 137/61
[2019-03-13] MEDS ORDERED: FURO80TA3 PO (08:13)
[2019-03-13] MEDS ORDERED: LIDOcaine 1% 30ml preserv. free vial IJ STA (08:36)
[2019-03-13 09:45] VITALS: BP 126/84
[2019-03-13 10:00] VITALS: BP 150/105
[2019-03-13 10:15] VITALS: BP 134/70
[2019-03-13 10:30] VITALS: BP 138/64
== END 2019-03-13 11:05 | disposition home or self-care (01) ==
LOC: SSTAY O 07:17
PROVIDERS: ATTEND Radiology Diagnostic Radiology
DX: J90 Pleural effusion, not elsewhere classified (principal); Z88.5 Allergy status to narcotic agent; N18.6 End stage renal disease; F32.9 Major depressive disorder, single episode, unspecified; E11.22 Type 2 diabetes mellitus with diabetic chronic kidney disease; K21.9 Gastro-esophageal reflux disease without esophagitis; I48.91 Unspecified atrial fibrillation; E11.39 Type 2 diabetes mellitus with other diabetic ophthalmic complication; H42 Glaucoma in diseases classified elsewhere; Z90.710 Acquired absence of both cervix and uterus; Z98.890 Other specified postprocedural states; Z98.49 Cataract extraction status, unspecified eye; Z79.4 Long term (current) use of insulin; Z79.899 Other long term (current) drug therapy
CPT/HCPCS: 32555; 71045

== ENCOUNTER 2020-04-16 19:21 | Emergency (ER) | payer MEDICARE, MEDICAID, OTHER ==
[~2020-04-16] VITALS: Ht 160 cm; Wt 58.2 kg
[~2020-04-16 19:21] MED LIST changes: +FURO80TA3 PO; -GUAI-934; -LUTE40CA PO; -VIT1TABL50 PO
[2020-04-16 20:33] LABS: HEMOGLOBIN 9.9 g/dl (12.0-16.0); MEAN CORPUSCULAR VOLUME 93.4 FL (78-98); RED BLOOD COUNT 3.21 X10'6 (4.20-5.60)
[2020-04-16 20:37] LABS: BASOPHILS % (AUTO) 0.3 % (0-1); EOSINOPHILS % (AUTO) 0.3 % (0-6); HEMATOCRIT 29.9 % (35.0-45.0); LYMPHOCYTES # (AUTO) 0.2 X10'3 (1.1-4.8); LYMPHOCYTES % (AUTO) 2.1 % (21-51); MEAN CORPUSCULAR HEMOGLOBIN 30.7 PG (27.0-31.0); MEAN CORPUSCULAR HGB CONC 32.9 g/dL (33.0-36.5); MEAN PLATELET VOLUME 7.4 FL (7.4-10.4); MONOCYTES # (AUTO) 0.8 X10'3 (0-0.9); MONOCYTES % (AUTO) 9.7 % (2-12); NEUTROPHILS % (AUTO) 87.6 % (42-75); PLATELET COUNT 209 X10'3 (140-440); RED CELL DISTRIBUTION WIDTH 14.4 % (11.5-14.5)
[2020-04-16 20:40] LABS: ALANINE AMINOTRANSFERASE 18 U/L (12-78); ALBUMIN 3.1 G/DL (3.4-5.0); ALBUMIN/GLOBULIN RATIO 0.7 (1.1-1.5); ALKALINE PHOSPHATASE 136 IU/L (46-116); ANION GAP 6 (8-16); ASPARTATE AMINO TRANSFERASE 16 U/L (10-37); BILIRUBIN,TOTAL 0.5 MG/DL (0.1-1.0); BLOOD UREA NITROGEN 35 MG/DL (7-18); CALCIUM 8.3 MG/DL (8.5-10.1); CHLORIDE 96 MMOL/L (99-107); CREATININE 3.89 MG/DL (0.40-0.90); GLUCOSE 177 MG/DL (70-104); POTASSIUM 3.6 MMOL/L (3.5-5.1); SODIUM 135 MMOL/L (135-145); TOTAL CARBON DIOXIDE 32.6 MMOL/L (24-32); TOTAL PROTEIN 7.6 G/DL (6.4-8.2); eGFR 11 ML/MIN
[2020-04-16 21:42] VITALS: BP 103/49
== END 2020-04-16 21:51 | disposition home or self-care (01) ==
LOC: ER 19:21
DX: S09.90XA Unspecified injury of head, initial encounter (principal); M54.2 Cervicalgia; K52.9 Noninfective gastroenteritis and colitis, unspecified; I10 Essential (primary) hypertension; N18.6 End stage renal disease; Z99.2 Dependence on renal dialysis; Z98.890 Other specified postprocedural states; Z88.8 Allergy status to other drugs, medicaments and biological substances; Z79.4 Long term (current) use of insulin; Z79.899 Other long term (current) drug therapy; W18.39XA Other fall on same level, initial encounter; Y93.01 Activity, walking, marching and hiking; Y92.89 Other specified places as the place of occurrence of the external cause; Y99.8 Other external cause status
CPT/HCPCS: 70450; 80053; 85025; 99284

== ENCOUNTER 2020-09-16 08:13 | Day surgery (SDC) | payer BC, MEDICAID, OTHER ==
[~2020-09-16] VITALS: Ht 161.3 cm; Wt 62.6 kg
[2020-09-16] MEDS ORDERED: normal saline 1,000 ML IV SCH (08:50)
[2020-09-16 09:16] LABS: BASOPHILS % (AUTO) 0.6 % (0-1); EOSINOPHILS # (AUTO) 0.1 X10'3 (0-0.9); EOSINOPHILS % (AUTO) 1.5 % (0-6); HEMOGLOBIN 12.6 g/dl (12.0-16.0); LYMPHOCYTES # (AUTO) 0.8 X10'3 (1.1-4.8); LYMPHOCYTES % (AUTO) 10.7 % (21-51); MEAN CORPUSCULAR HEMOGLOBIN 29.3 PG (27.0-31.0); MEAN CORPUSCULAR HGB CONC 32.3 g/dL (33.0-36.5); MEAN CORPUSCULAR VOLUME 90.7 FL (78-98); MEAN PLATELET VOLUME 7.9 FL (7.4-10.4); MONOCYTES # (AUTO) 0.6 X10'3 (0-0.9); MONOCYTES % (AUTO) 8.7 % (2-12); NEUTROPHILS # (AUTO) 5.8 X10'3 (1.8-7.7); NEUTROPHILS % (AUTO) 78.5 % (42-75); PLATELET COUNT 203 X10'3 (140-440); RED CELL DISTRIBUTION WIDTH 17.2 % (11.5-14.5); WHITE BLOOD COUNT 7.4 X10'3 (4.5-11.0)
[2020-09-16 09:21] LABS: ALBUMIN 3.7 G/DL (3.4-5.0); ANION GAP 11 (8-16); BLOOD UREA NITROGEN 56 MG/DL (7-18); BUN/CREATININE RATIO 10.1 (6.6-38.0); CALCIUM 9.3 MG/DL (8.5-10.1); CHLORIDE 100 MMOL/L (99-107); CREATININE 5.55 MG/DL (0.40-0.90); GLUCOSE 171 MG/DL (70-104); POTASSIUM 4.1 MMOL/L (3.5-5.1); SODIUM 142 MMOL/L (135-145); TOTAL CARBON DIOXIDE 30.6 MMOL/L (24-32); eGFR 7 ML/MIN
[2020-09-16] MEDS ORDERED: LISI-790 PO (09:30)
[2020-09-16] MEDS ORDERED: BUME1TAB8 PO (09:30)
[2020-09-16] MEDS ORDERED: ASPI-1265 PO (09:30)
[2020-09-16 09:37] VITALS: BP 129/61
[2020-09-16] MEDS ORDERED: LIDOcaine 1%/PF 5ML 10 MG/ML VIAL ONE (10:47)
[2020-09-16] MEDS ORDERED: midazolam 1 mg/ML 2ml injection ONE (10:48)
[2020-09-16] MEDS ORDERED: fentaNYL/PF 50MCG/1 ML 2ML syringe ONE ×2 (10:48→11:36)
[2020-09-16] MEDS ORDERED: iohexol 300mg/ml 100ml inj. ONE (10:48)
[2020-09-16] MEDS ORDERED: heparin 1,000 UNITS/NS 500ml 500 ML ONE (10:48)
[2020-09-16 12:00] VITALS: BP 138/75
[2020-09-16 12:15] VITALS: BP 140/68
[2020-09-16 12:30] VITALS: BP 131/49
== END 2020-09-16 13:10 | disposition home or self-care (01) ==
LOC: SSTAY O 08:13
PROVIDERS: ATTEND Radiology Vascular & Interventional Radiology
DX: T82.858A Stenosis of other vascular prosthetic devices, implants and grafts, initial encounter (principal); E11.22 Type 2 diabetes mellitus with diabetic chronic kidney disease; N18.6 End stage renal disease; E11.39 Type 2 diabetes mellitus with other diabetic ophthalmic complication; H40.9 Unspecified glaucoma; F32.9 Major depressive disorder, single episode, unspecified; K21.9 Gastro-esophageal reflux disease without esophagitis; I48.91 Unspecified atrial fibrillation; Z98.890 Other specified postprocedural states; Z90.710 Acquired absence of both cervix and uterus; Z20.822 Contact with and (suspected) exposure to COVID-19; Z88.5 Allergy status to narcotic agent; Z98.49 Cataract extraction status, unspecified eye; Z79.899 Other long term (current) drug therapy; Z79.82 Long term (current) use of aspirin; Z79.4 Long term (current) use of insulin; Y83.2 Surgical operation with anastomosis, bypass or graft as the cause of abnormal reaction of the patient, or of later complication, without mention of misadventure at the time of the procedure; Y92.89 Other specified places as the place of occurrence of the external cause
CPT/HCPCS: 36415; 36902; 80048; 82948; 85025; 85610; 87635; 99152; 99153; C1725; C1769; C1894; C9803; J1644; J2250; J3010; Q9967